=== PATIENT | female | born 1985 | race Two or more races ===

== ENCOUNTER 2018-07-09 06:19 | Inpatient (IN) ==
[~2018-07-09 06:19] MED LIST: LR 1000 ML IV 1,000 ML IV ONE
[2018-07-09] MEDS ORDERED: FENTANYL INJ 100 mcg ONE (06:20)
[2018-07-09] MEDS ORDERED: XYLOCAINE 1 % (PLAIN) ONE (06:20)
[2018-07-09] MEDS ORDERED: D5LR 1L W PITOCIN 10 UNITS/L 10 UNITS/1,000 ML BAG IV ONE (06:20)
[2018-07-09] MEDS ORDERED: PITOCIN ONE (06:20)
[2018-07-09] MEDS ORDERED: XYLOCAINE 2 % (PLAIN) ONE (06:20)
[2018-07-09] MEDS ORDERED: NAROPIN EPIDURAL 0.2% + FENTANYL 90MCG 60 ML EPI ONE (06:21)
[2018-07-09] MEDS ORDERED: ADRENALINE CHL INJ ONE (06:21)
[2018-07-09] MEDS ORDERED: D5 1/2 NS 1L W PITOCIN 20 UNITS/L 0 UNITS/0 ML BAG IV ONE (06:21)
[2018-07-09] MEDS ORDERED: D5 1/2 NS 1000 ML 1,000 ML IV ONE (06:21)
[2018-07-09] MEDS ORDERED: NUBAIN INJ 200 MG VIAL MULTIDOSE IVP PRN (06:43)
[2018-07-09] MEDS ORDERED: PITOCIN IVP ONE (06:43)
[2018-07-09] MEDS ORDERED: MORPHINE SULFATE INJ 2 MG INJ IVP PRN (06:43)
[2018-07-09] MEDS ORDERED: PHENERGAN INJ 25 MG IV PRN (06:43)
[2018-07-09] MEDS ORDERED: REGLAN INJ 10 MG VIAL IVP PRN ×2 (06:43→18:23)
[2018-07-09] MEDS ORDERED: D5LR 1L W PITOCIN 10 UNITS/L 10 UNITS/1,000 ML BAG IV PRN (06:43)
--- NOTE | 2018-07-09 11:48 | DR.OB ---
OB Quick Note - Assessment/Plan Assessment/Plan: L&D 07/09/18 at 7:10am S-No complaint. O-Afebrile,VSS TGD=580 with good LTV, +accel, no decel. CTX=none CVX=1cm/75%/-1/VTX AROM with clear fluid. IUPC and FSE placed. A-IUP at 38 1/7 weeks for induction A1DM Hypothyroidism P-Begin pitocin induction Anticipate
--- NOTE | 2018-07-09 12:18 | DR.OB ---
OB Quick Note - Assessment/Plan Assessment/Plan: L&D 07/09/18 at 12:15pm Pitocin=20mu/min. S-No complaint except CTX. O-Afebrile,VSS [id number]=042 with good LTV, +accel, no decel. CTX=q 1 1/2 to 2 min., about 45-50mmHg CVX=3cm/75%/-1 A-IUP at 38 1/7 weeks for induction A1DM Hypothyroidism P-Cont. pitocin induction Anticipate
[2018-07-09] MEDS ORDERED: ANCEF 1 GRAM IV PREMIX* 1 G/50 ML BAG IV ONE (16:11)
--- NOTE | 2018-07-09 16:48 | DR.OB ---
OB Quick Note - Assessment/Plan Assessment/Plan: L&D 07/09/18 at 4:40pm Pitocin=20mu/min. S-No complaint. O-Afebrile,VSS AGX=950 with good LTV, +accel, no decel. CTX=q 1 1/2 to 2 min., about 35-50mmHg CVX=3cm/75%/-1 (no change since noon) A-IUP at 38 1/7 weeks with failure to dilate A1DM Hypothyroidism P-To C/S
[2018-07-09] MEDS ORDERED: XYLOCAINE 2% and EPINEPHRINE 1:100,000 ONE (16:51)
[2018-07-09] MEDS ORDERED: LR 1000 ML IV 1,000 ML IV ONE (17:01)
[2018-07-09] MEDS ORDERED: DILAUDID INJ ONE ×2 (17:36→18:30)
[2018-07-09] MEDS ORDERED: D5 1/2 NS 1L W PITOCIN 20 UNITS/L 20 UNITS/1,000 ML BAG IV ONE (17:54)
[2018-07-09] MEDS ORDERED: PHENERGAN INJ 25 MG IVP PRN (18:23)
[2018-07-09] MEDS ORDERED: DILAUDID INJ IVP PRN (18:23)
[2018-07-09] MEDS ORDERED: ZOFRAN INJ 4 MG VIAL IVP PRN ×2 (18:23→18:55)
[2018-07-09] MEDS ORDERED: BENADRYL INJ 50 MG VIAL IVP PRN ×2 (18:23→18:55)
[2018-07-09] MEDS ORDERED: ADACEL or BOOSTRIX TDaP VACCINE IM ONE (18:55)
[2018-07-09] MEDS ORDERED: TORADOL 30 MG VIAL IVP PRN (18:55)
[2018-07-09] MEDS ORDERED: NARCAN INJ IVP PRN (18:55)
[2018-07-09] MEDS ORDERED: PERCOCET TAB 5/325 MG PO PRN (18:55)
[2018-07-09] MEDS ORDERED: MYLICON TAB 80 MG CHEW PO PRN (18:55)
[2018-07-09] MEDS ORDERED: D5 1/2 NS 1000 ML 1,000 ML with PITOCIN 20 UNITS IV SCH ×2 (19:00)
[2018-07-09] MEDS: ZANTAC PO SCH (21:52)
[2018-07-10 05:04] LABS: HEMATOCRIT 32.5 % (36.0-47.0); HEMOGLOBIN 10.8 g/dL (12.0-16.0)
[2018-07-10] MEDS ORDERED: MILK OF MAGNESIA PO PRN (08:01)
[2018-07-10] MEDS: ZANTAC PO SCH ×2 (08:40→20:05)
[2018-07-10] MEDS: PRENATAL PLUS PO SCH (08:40)
[2018-07-10] MEDS: COLACE CAP 100 MG PO SCH ×2 (08:41→20:04)
[2018-07-10] MEDS: MOTRIN TAB 800 MG PO PRN ×2 (11:19→20:05)
[2018-07-10] MEDS: BACTROBAN TOPICAL OINT TOP SCH ×2 (14:47→22:47)
[2018-07-10] MEDS ORDERED: SYNTHROID 25 mcg TAB PO SCH (16:30)
[2018-07-10] MEDS: PERCOCET TAB 5/325 MG PO PRN (16:48)
[2018-07-11] MEDS: BACTROBAN TOPICAL OINT TOP SCH (05:29)
[2018-07-11 07:36] VITALS: BP 117/64
[2018-07-11] MEDS: COLACE CAP 100 MG PO SCH (08:04)
[2018-07-11] MEDS: PRENATAL PLUS PO SCH (08:04)
[2018-07-11] MEDS: MOTRIN TAB 800 MG PO PRN (08:05)
[2018-07-11] MEDS: ZANTAC PO SCH (08:05)
[2018-07-11] MEDS: PERCOCET TAB 5/325 MG PO PRN (12:38)
== END 2018-07-11 12:45 | disposition home or self-care (01) | DRG 788 ==
LOC: LD 06:19 → MED/SURG 18:54
PROVIDERS: ADMIT Specialist; ATTEND Specialist
DX: Z37.0 Single live birth; E03.8 Other specified hypothyroidism; O62.0 Primary inadequate contractions; Z3A.38 38 weeks gestation of pregnancy; O24.420 Gestational diabetes mellitus in childbirth, diet controlled; O99.284 Endocrine, nutritional and metabolic diseases complicating childbirth; Z23 Encounter for immunization
CPT/HCPCS: 36415; 85014; 85018; 90715; A4216; A4222; S0197; J0171; J0690; J1170; J1885; J2001; J2590; J3010; J3490; J7120; S5010

== ENCOUNTER 2020-01-07 06:26 | Inpatient (IN) ==
[2020-01-07] MEDS ORDERED: ANCEF 1 GRAM IV PREMIX* 1 G/50 ML BAG IV ONE (06:31)
[2020-01-07] MEDS ORDERED: LR 1000 ML IV 1,000 ML IV ONE (06:31)
[2020-01-07] MEDS ORDERED: ANCEF VIAL 1 GRAM IVP ONE (06:34)
[2020-01-07] MEDS ORDERED: D5 1/2 NS 1000 ML 1,000 ML IV SCH (06:34)
[2020-01-07] MEDS ORDERED: NS 1000 ML 2,000 ML ONE (06:53)
[2020-01-07] MEDS ORDERED: DILAUDID INJ ONE (06:53)
[2020-01-07] MEDS ORDERED: ZOFRAN INJ 4 MG VIAL ONE ×2 (07:15→09:17)
[2020-01-07] MEDS ORDERED: TORADOL 30 MG VIAL ONE (07:15)
[2020-01-07] MEDS ORDERED: PITOCIN ONE (07:15)
[2020-01-07] MEDS ORDERED: XYLOCAINE 2 % (PLAIN) ONE (07:15)
[2020-01-07] MEDS ORDERED: BENADRYL INJ 50 MG VIAL IVP PRN ×2 (08:49→10:19)
[2020-01-07] MEDS ORDERED: ZOFRAN INJ 4 MG VIAL IVP PRN ×2 (08:49→10:19)
[2020-01-07] MEDS ORDERED: REGLAN INJ 10 MG VIAL IVP PRN ×2 (08:49→10:19)
[2020-01-07] MEDS ORDERED: PHENERGAN INJ 25 MG IM PRN (08:49)
[2020-01-07] MEDS ORDERED: DILAUDID INJ IVP PRN (08:49)
[2020-01-07] MEDS ORDERED: D5 1/2 NS 1000 ML 1,000 ML with PITOCIN 20 UNITS IV SCH ×2 (10:19)
[2020-01-07] MEDS ORDERED: ADACEL or BOOSTRIX TDaP VACCINE IM ONE (10:19)
[2020-01-07] MEDS ORDERED: MYLICON TAB 80 MG CHEW PO PRN (10:19)
[2020-01-07] MEDS ORDERED: PERCOCET TAB 5/325 MG PO PRN (10:19)
[2020-01-07] MEDS ORDERED: NARCAN INJ IVP PRN (10:19)
[2020-01-07] MEDS ORDERED: TORADOL 30 MG VIAL IVP PRN (10:19)
[2020-01-07] MEDS ORDERED: D5 1/2 NS 1L W PITOCIN 20 UNITS/L 20 UNITS/1,000 ML BAG IV ONE (10:20)
[2020-01-07] MEDS: PRENATAL PLUS PO SCH (14:18)
[2020-01-07] MEDS: PROTONIX TAB 40 MG PO SCH (14:19)
[2020-01-08 04:06] LABS: HEMATOCRIT 34.3 % (36.0-47.0); HEMOGLOBIN 11.2 g/dL (12.0-16.0)
[2020-01-08] MEDS ORDERED: PERCOCET TAB 5/325 MG PO PRN (08:25)
[2020-01-08] MEDS: COLACE CAP 100 MG PO SCH ×2 (09:16→21:00)
[2020-01-08] MEDS: PRENATAL PLUS PO SCH (09:16)
[2020-01-08] MEDS: PROTONIX TAB 40 MG PO SCH (09:16)
[2020-01-08] MEDS ORDERED: COLACE CAP 100 MG PO ONE (09:18)
[2020-01-08] MEDS: BACTROBAN TOPICAL OINT TOP SCH (21:00)
[2020-01-08] MEDS: MOTRIN TAB 800 MG PO PRN (22:35)
[2020-01-09] MEDS: BACTROBAN TOPICAL OINT TOP SCH ×2 (05:15→14:36)
[2020-01-09] MEDS ORDERED: DEPO-PROVERA CONTRACEPTIVE INJ IM ONE (08:23)
[2020-01-09 08:24] VITALS: BP 115/67
[2020-01-09] MEDS: PRENATAL PLUS PO SCH (08:52)
[2020-01-09] MEDS: COLACE CAP 100 MG PO SCH (08:52)
[2020-01-09] MEDS: MOTRIN TAB 800 MG PO PRN (08:53)
[2020-01-09] MEDS: PROTONIX TAB 40 MG PO SCH (08:54)
== END 2020-01-09 14:28 | disposition home or self-care (01) | DRG 788 ==
LOC: LD 06:26 → MED/SURG 09:48
PROVIDERS: ADMIT Specialist; ATTEND Specialist
DX: O24.410 Gestational diabetes mellitus in pregnancy, diet controlled; Z37.0 Single live birth; O99.613 Diseases of the digestive system complicating pregnancy, third trimester; E03.8 Other specified hypothyroidism; Z3A.39 39 weeks gestation of pregnancy

== ENCOUNTER 2022-06-07 06:30 | Inpatient (IN) ==
[2022-06-07] MEDS ORDERED: ANCEF VIAL 1 GRAM IVP ONE (06:36)
[2022-06-07] MEDS ORDERED: D5 1/2 NS 1,000 ML 1,000 ML IV SCH (06:36)
[2022-06-07] MEDS ORDERED: NS 100 ML IV 100 ML ONE (06:38)
[2022-06-07] MEDS ORDERED: BETADINE SOLN ONE (07:03)
[2022-06-07 07:12] VITALS: BMI 30.8
[2022-06-07] MEDS ORDERED: VERSED ONE (07:22)
[2022-06-07] MEDS ORDERED: FENTANYL VIAL INJ 250 mcg ONE (07:22)
[2022-06-07] MEDS ORDERED: DIPRIVAN VIAL 20 ML ONE (07:23)
[2022-06-07] MEDS ORDERED: ZEMURON 100 MG VIAL ONE (07:23)
[2022-06-07] MEDS ORDERED: QUELICIN (OR ANECTINE) ONE (07:23)
[2022-06-07] MEDS ORDERED: SUPRANE ONE (07:27)
[2022-06-07] MEDS ORDERED: ZOFRAN INJ 4 MG VIAL ONE (07:31)
[2022-06-07] MEDS ORDERED: REGLAN INJ 10 MG VIAL ONE (07:31)
[2022-06-07] MEDS ORDERED: BRIDION ONE (07:54)
[2022-06-07] MEDS ORDERED: D5 1/2 NS 1,000 ML 1,000 ML IV ONE (08:27)
[2022-06-07] MEDS ORDERED: DILAUDID INJ IVP PRN (08:53)
[2022-06-07] MEDS ORDERED: BENADRYL INJ 50 MG VIAL IVP PRN ×2 (08:53→09:04)
[2022-06-07] MEDS ORDERED: REGLAN INJ 10 MG VIAL IVP PRN (08:53)
[2022-06-07] MEDS ORDERED: BARHEMSYS INJ IVP PRN (08:53)
[2022-06-07] MEDS ORDERED: ZOFRAN INJ 4 MG VIAL IVP PRN ×2 (08:53→09:04)
[2022-06-07] MEDS ORDERED: HYDROCHLOROTHIAZIDE 25 MG TAB PO SCH ×2 (09:04→21:00)
[2022-06-07] MEDS: D5 1/2 NS 1,000 ML 1,000 ML IV SCH ×2 (09:47→16:48)
[2022-06-07] MEDS: TORADOL 30 MG VIAL IVP PRN ×2 (09:49→20:08)
[2022-06-07] MEDS ORDERED: PERCOCET TAB 5/325 MG PO PRN (12:11)
[2022-06-07] MEDS ORDERED: COLACE CAP 100 MG PO SCH (21:00)
[2022-06-08] MEDS: D5 1/2 NS 1,000 ML 1,000 ML IV SCH (00:38)
[2022-06-08 05:21] LABS: BLOOD UREA NITROGEN 5 mg/dL (7-18); CALCIUM 7.8 mg/dL (8.5-10.1); CARBON DIOXIDE 25.6 mmol/L (21-32); CHLORIDE 102 mmol/L (98-107); COR NA(FOR HYPERGLY) 140 mmol/L (136-145); CREATININE 0.69 mg/dL (0.55-1.02); SODIUM 139 mmol/L (136-145); eGFR NON BLACK RACES > 60 (>60)
[2022-06-08 05:34] LABS: BASOPHILS % (AUTO) 0.4 % (0.2-1.0); EOSINOPHILS # (AUTO) 0.1 x10^3/uL (0.0-0.2); LYMPHOCYTES # (AUTO) 2.1 X10^3/uL (1.3-2.9); LYMPHOCYTES % (AUTO) 28.7 % (21.0-51.0); MEAN CORPUSCULAR HGB CONC 33.2 g/dL (33.0-35.0); MEAN CORPUSCULAR VOLUME 78.2 fL (80.0-100.0); MEAN PLATELET VOLUME 7.5 fL (7.4-11.0); MONOCYTES # (AUTO) 0.8 x10^3/uL (0.3-0.8); MONOCYTES % (AUTO) 11.2 % (0.0-13.0); NEUTROPHILS # (AUTO) 4.2 x10^3/uL (2.2-4.8); NEUTROPHILS % (AUTO) 57.7 % (42.0-75.0); RED BLOOD COUNT 4.34 X10^6/uL (3.5-5.4); RED CELL DISTRIBUTION WIDTH 13.6 % (11.6-16.5); WHITE BLOOD COUNT 7.2 X10^3/uL (3.6-10.0)
[2022-06-08 05:46] LABS: HEMOGLOBIN 11.3 g/dL (12.0-16.0)
[2022-06-08 08:15] VITALS: BP 118/74
[2022-06-08] MEDS ORDERED: BACTROBAN TOPICAL OINT TOP SCH (14:00)
== END 2022-06-08 11:18 | disposition home or self-care (01) | DRG 743 ==
LOC: SURG1 06:30 → MED/SURG 07:54
PROVIDERS: ADMIT Specialist; ATTEND Specialist
PROC: ECTOPOP (2022-06-07 07:45)
DX: R10.2 Pelvic and perineal pain; N83.291 Other ovarian cyst, right side